=== PATIENT | male | born 1990 | race Caucasian/White ===

== ENCOUNTER 2019-04-03 14:17 | Inpatient (IN) | payer OTHER ==
[2019-04-03 18:03] VITALS: BMI 22.2
--- NOTE | 2019-04-03 20:54 | HP ---
CIWA Score Nausea/Vomitin Muscle Tremors: 3 Anxiety: 2 Agitation: 2 Paroxysmal Sweats: 2 Orientation: 0-Oriented Tacttile Disturbances: 2-Mild Itch/Numbness/Burn Auditory Disturbances: 2-Mild Harshness/Frighten Visual Disturbances: 2-Mild Sensitivity Headache: 2-Mild CIWA-Ar Total Score: 19 - Admission Criteria OASAS Guidelines: Admission for Medically Managed Detox: Requires at least one of the followin. CIWA greater than 12 2. Seizures within the past 24 hours 3. Delirium tremens within the past 24 hours 4. Hallucinations within the past 24 hours 5. Acute intervention needed for co occurring medical disorder 6. Acute intervention needed for co occurring psychiatric disorder 7. Severe withdrawal that cannot be handled at a lower level of care (continued vomiting, continued diarrhea, abnormal vital signs) requiring intravenous medication and/or fluids 8. Admission ROS BHS - HPI Chief Complaint: DEPENDENT ON ETOH AND MARIJUANA Allergies/Adverse Reactions: Allergies Allergy/AdvReac Type Severity Reaction Status Date / Time No Known Allergies Allergy Verified 04/03/19 17:47 History of Present Illness: THE PT. IS REQUESTING ADMISSION TO THE DETOX UNIT AND CAME FOR MEDICAL CLEARANCE Exam Limitations: No Limitations - Ebola screening Have you traveled outside of the country in the last 21 days: No (N) Have you had contact with anyone from an Ebola affected area: No Have you been sick,other than usual withdrawal symptoms: No Do you have a fever: No - Review of Systems Constitutional: See HPI, Malaise, Weakness EENT: reports: See HPI Respiratory: reports: See HPI Cardiac: reports: See HPI, Syncope GI: reports: See HPI, Diarrhea, Nausea, Abdominal cramping : reports: No Symptoms Reported, See HPI Integumentary: reports: See HPI, Flushing, Sweating Neuro: reports: See HPI, Headache, Tremors, Weakness Endocrine: reports: See HPI Hematology: reports: See HPI Psychiatric: reports: Judgement Intact, Orientated x3, Anxious, Depressed Patient History - Patient Medical History Hx Asthma: Yes Hx Human Immunodeficiency Virus (HIV): No Hx Hepatitis C: No Hx Depression: Yes (AND ANXIETY) - Patient Surgical History Past Surgical History: Yes Hx Orthopedic Surgery: Yes (REPAIR OF RT. ACL IN 2010) - Smoking Cessation Smoking history: Current every day smoker Have you smoked in the past 12 months: Yes Aproximately how many cigarettes per day: 20 Hx Chewing Tobacco Use: No Initiated information on smoking cessation: Yes 'Breaking Loose' booklet given: 04/03/19 - Substance & Tx. History Hx Alcohol Use: Yes Hx Substance Use: Yes Substance Use Type: Alcohol, Marijuana Hx Substance Use Treatment: Yes - Substances abused Alcohol Substance route: Oral Frequency: Daily Amount used: 1 liter ,sometimes half a gallon, vodka. Age of first use: 13 Date of last use: 04/03/19 Marijuana/Hashish Substance route: Smoking Frequency: Daily Amount used: 'not a lot' Age of first use: 15 Date of last use: 04/03/19 Admission Physical Exam BHS - Vital Signs Vital Signs: Vital Signs - 24 hr 04/03/19 17:44 Temperature 97.9 F Pulse Rate 123 H Respiratory 16 Rate Blood Pressure 153/72 - Physical General Appearance: Yes: No Apparent Distress, Nourished, Appropriately Dressed , Alcohol on Breath, Tremorous, Sweating, Anxious HEENTM: Yes: Hearing grossly Normal, Normocephalic, Normal Voice, KAIT, Pharynx Normal Respiratory: Yes: Chest Non-Tender, Lungs Clear, Normal Breath Sounds, No Respiratory Distress, No Accessory Muscle Use Neck: Yes: No masses,lesions,Nodules, Supple, Trachea in good position Breast: Yes: Breast Exam Deferred, Axillae without masses Cardiology: Yes: Regular Rhythm, S1, S2, Tachycardia Abdominal: Yes: Normal Bowel Sounds, Non Tender, Flat, Soft Back: Yes: Normal Inspection Musculoskeletal: Yes: full range of Motion, Gait Steady, Pelvis Stable, Muscle Pain, Muscle weakness Extremities: Yes: Normal Capillary Refill, Normal Range of Motion, Non-Tender, Tremors Neurological: Yes: material hauler II-XII NML intact, Fully Oriented, Alert, Motor Strength 5/5, Normal Response, Depressed Affect Integumentary: Yes: Warm, Moist Lymphatic: Yes: Within Normal Limits - Diagnostic (1) EtOH dependence Current Visit: Yes Status: Chronic Qualifiers: Substance use status: uncomplicated Qualified Code(s): F10.20 - Alcohol dependence, uncomplicated (2) Cannabis dependence Current Visit: Yes Status: Chronic (3) Asthma Current Visit: Yes Status: Chronic Qualifiers: Asthma severity: mild Asthma persistence: intermittent Asthma complication type: uncomplicated Qualified Code(s): J45.20 - Mild intermittent asthma, uncomplicated (4) Nicotine dependence Current Visit: Yes Status: Chronic (5) Anxiety and depression Current Visit: Yes Status: Chronic Cleared for Admission S - Detox or Rehab [facility] Level of Care: Medically Supervised Detox Regimen/Protocol: Librium Breathalyzer - Breathalyzer Breathalyzer: 0.101 Urine Drug Screen - Test Device Lot number: [id number] Expiration date: 12/06/20 - Control Is test valid?: Yes - Results Drug screen NEGATIVE: No Urine drug screen results: THC-Marijuana Inpatient Rehab Admission - Rehab Decision to Admit Inpatient rehab admission?: No
[2019-04-03] MEDS ORDERED: BISMUTH SUBSALICYLATE 524 MG/30 ML UD PO PRN (20:59)
[2019-04-03] MEDS ORDERED: ACETAMINOPHEN 325 MG TABLET (FP) PO PRN ×2 (20:59)
[2019-04-03] MEDS ORDERED: hydrOXYzine PAMOATE 25 MG CAPSULE (FP) PO PRN (20:59)
[2019-04-03] MEDS ORDERED: IBUPROFEN 400 MG TABLET (FP) PO PRN (20:59)
[2019-04-03] MEDS ORDERED: MENTHOL/PHENOL 1 EACH UD MM PRN (20:59)
[2019-04-03] MEDS ORDERED: MAGNESIUM CITRATE 300 ML BOTTLE PO PRN (20:59)
[2019-04-03] MEDS ORDERED: chlordiazePOXIDE HCL 10 MG CAPSULE PO PRN (20:59)
[2019-04-03] MEDS ORDERED: NICOTINE POLACRILEX 4 MG GUM BUC PRN (20:59)
[2019-04-03] MEDS ORDERED: MAG HYDROX/AL HYDROX/SIMETH 30 ML UNIT-DOSE CUP PO PRN (20:59)
[2019-04-03] MEDS ORDERED: chlordiazePOXIDE HCL 25 MG CAPSULE PO ONE (20:59)
[2019-04-03] MEDS ORDERED: METHOCARBAMOL 500 MG TABLET PO PRN (20:59)
[2019-04-03] MEDS ORDERED: ALBUTEROL SO4 8 GM HFA INHALER IH PRN (22:00)
[2019-04-03] MEDS ORDERED: NORTRIPTYLINE HCL 50 MG CAPSULE PO SCH (22:00)
[2019-04-03] MEDS: THIAMINE HCL 100 MG TABLET (FP) PO SCH (22:53)
[2019-04-03] MEDS: ESCITALOPRAM OXALATE 10 MG TABLET (FP) PO SCH (22:55)
[2019-04-03] MEDS: traZODone HCL 50 MG TABLET (FP) PO SCH (22:56)
[2019-04-03] MEDS: chlordiazePOXIDE HCL 25 MG CAPSULE PO SCH (22:56)
[2019-04-03] MEDS: TOPIRAMATE 25 MG TABLET (FP) PO SCH (23:34)
[2019-04-04] MEDS: chlordiazePOXIDE HCL 25 MG CAPSULE PO SCH ×3 (05:33→22:20)
[2019-04-04] MEDS: TRIMETHOBENZAMIDE HCL 200MG/2ML INJ IM PRN (09:03)
[2019-04-04] MEDS ORDERED: ONDANSETRON *ODT* 4 MG TABLET SL ONE (09:53)
--- NOTE | 2019-04-04 09:55 | PN ---
S CIWA - CIWA Score Nausea/Vomitin (no vomiting) Muscle Tremors: 4-Moderate,w/Arms Extend Anxiety: 3 Agitation: 3 Paroxysmal Sweats: 2 Orientation: 2-Disoriented Date<2 days (date of week and day of month) Tacttile Disturbances: 0-None Auditory Disturbances: 1-Very Mild Visual Disturbances: 0-None Headache: 0-None Present CIWA-Ar Total Score: 17 BHS Progress Note (SOAP) Subjective: 28 years old male admitted on 04/03/19 for alcohol withdrawal sx management treated with librium detox regimen c/o nausea "I am taking zofran in the past few years" zofran 4 mg sl x 1 continue tigan prn discontinue motrin begin pepcid Objective: 04/04/19 09:57 Vital Signs Temperature 98.0 F 04/04/19 09:07 Pulse Rate 73 04/04/19 09:07 Respiratory Rate 18 04/04/19 09:07 Blood Pressure 131/84 04/04/19 09:07 O2 Sat by Pulse Oximetry (%) 04/04/19 09:57 lab pending Assessment: 04/04/19 09:59 alcohol withdrawal sx pepcid 20 mg po bid zofran 4 mg sl x 1 ensure 90ml po bid Plan: continue librium detox regimen
[2019-04-04 10:08] LABS: ALBUMIN 3.6 g/dl (3.4-5.0); BILIRUBIN,TOTAL 0.4 mg/dL (0.2-1); BLOOD UREA NITROGEN 9.3 mg/dL (7-18); CALCIUM 8.9 mg/dL (8.5-10.1); CREATININE 0.8 mg/dL (0.55-1.3); POTASSIUM 3.8 mmol/L (3.5-5.1)
[2019-04-04 10:09] LABS: HEMATOCRIT 40.8 % (35.4-49); HEMOGLOBIN 13.7 GM/dL (11.7-16.9); MCH 32.1 pg (25.7-33.7); MCHC 33.6 g/dl (32.0-35.9); MEAN CELL VOLUME 95.6 fl (80-96); MEAN PLT VOLUME 7.9 fl (7.5-11.1); PLATELET COUNT 248 K/MM3 (134-434); RBC 4.27 M/mm3 (4.00-5.60); RDW 12.6 % (11.9-15.9); WHITE BLOOD COUNT 5.6 K/mm3 (4.0-10.0)
[2019-04-04] MEDS: ESCITALOPRAM OXALATE 10 MG TABLET (FP) PO SCH (10:46)
[2019-04-04] MEDS: PRENATAL VITAMINS W/ FOLIC ACID TABLET (FP) PO SCH (10:46)
[2019-04-04] MEDS: NICOTINE 21 MG/24 HOURS TOPICAL PATCH TD SCH (10:47)
[2019-04-04] MEDS: FAMOTIDINE 20 MG TABLET PO SCH ×2 (10:47→22:20)
[2019-04-04] MEDS: TOPIRAMATE 25 MG TABLET (FP) PO SCH ×2 (10:48→22:20)
[2019-04-04] MEDS: ONDANSETRON *ODT* 4 MG TABLET SL PRN (21:48)
[2019-04-04] MEDS: traZODone HCL 50 MG TABLET (FP) PO SCH (22:20)
[2019-04-04] MEDS: NORTRIPTYLINE HCL 25 MG CAPSULE PO SCH (22:20)
[2019-04-04] MEDS: THIAMINE HCL 100 MG TABLET (FP) PO SCH (22:21)
[2019-04-04] MEDS: MELATONIN 5 MG TABLETS PO PRN (22:21)
[2019-04-05] MEDS: TRIMETHOBENZAMIDE HCL 200MG/2ML INJ IM PRN ×2 (02:28→17:45)
[2019-04-05] MEDS ORDERED: chlordiazePOXIDE 5 MG CAPSULE PO SCH (05:00)
[2019-04-05] MEDS: FAMOTIDINE 20 MG TABLET PO SCH ×2 (10:28→22:17)
[2019-04-05] MEDS: NICOTINE 21 MG/24 HOURS TOPICAL PATCH TD SCH (10:28)
[2019-04-05] MEDS: ESCITALOPRAM OXALATE 10 MG TABLET (FP) PO SCH (10:28)
[2019-04-05] MEDS: PRENATAL VITAMINS W/ FOLIC ACID TABLET (FP) PO SCH (10:28)
[2019-04-05] MEDS: TOPIRAMATE 25 MG TABLET (FP) PO SCH ×2 (11:13→22:17)
[2019-04-05] MEDS: ONDANSETRON *ODT* 4 MG TABLET SL PRN (11:16)
--- NOTE | 2019-04-05 12:56 | PN ---
[facility] CIWA - CIWA Score Nausea/Vomitin-No Nausea/No Vomiting Muscle Tremors: 3 Anxiety: 3 Agitation: 2 Paroxysmal Sweats: 2 Orientation: 1-Uncertain about Date (date of week) Tacttile Disturbances: 1-Very Mild Itch/Numbness Auditory Disturbances: 0-None Visual Disturbances: 0-None Headache: 0-None Present CIWA-Ar Total Score: 12 S Progress Note (SOAP) Subjective: 28 years old male admitted on 04/03/19 for alcohol withdrawal sx management treated with ativan detox regimen patient tolerated well ambulating on hallway ate breakfast and lunch tolerate food and fluid well Objective: 04/05/19 12:55 Vital Signs Temperature 97.2 F L 04/05/19 09:18 Pulse Rate 69 04/05/19 09:18 Respiratory Rate 18 04/05/19 09:18 Blood Pressure 129/89 04/05/19 09:18 O2 Sat by Pulse Oximetry (%) Laboratory Last Values WBC 5.6 K/mm3 (4.0-10.0) 04/04/19 07:40 RBC 4.27 M/mm3 (4.00-5.60) 04/04/19 07:40 Hgb 13.7 GM/dL (11.7-16.9) 04/04/19 07:40 Hct 40.8 % (35.4-49) 04/04/19 07:40 MCV 95.6 fl (80-96) 04/04/19 07:40 MCH 32.1 pg (25.7-33.7) 04/04/19 07:40 MCHC 33.6 g/dl (32.0-35.9) 04/04/19 07:40 RDW 12.6 % (11.9-15.9) 04/04/19 07:40 Plt Count 248 K/MM3 (134-434) 04/04/19 07:40 MPV 7.9 fl (7.5-11.1) 04/04/19 07:40 Sodium 142 mmol/L (136-145) 04/04/19 07:40 Potassium 3.8 mmol/L (3.5-5.1) 04/04/19 07:40 Chloride 108 mmol/L (98-107) H 04/04/19 07:40 Carbon Dioxide 26 mmol/L (21-32) 04/04/19 07:40 Anion Gap 8 MMOL/L (8-16) 04/04/19 07:40 BUN 9.3 mg/dL (7-18) 04/04/19 07:40 Creatinine 0.8 mg/dL (0.55-1.3) 04/04/19 07:40 Est GFR (CKD-EPI)AfAm 140.90 04/04/19 07:40 Est GFR (CKD-EPI)NonAf 121.57 04/04/19 07:40 Random Glucose 92 mg/dL (74-106) 04/04/19 07:40 Calcium 8.9 mg/dL (8.5-10.1) 04/04/19 07:40 Total Bilirubin 0.4 mg/dL (0.2-1) 04/04/19 07:40 AST 21 U/L (15-37) 04/04/19 07:40 ALT 41 U/L (13-61) 04/04/19 07:40 Alkaline Phosphatase 56 U/L (45-117) 04/04/19 07:40 Total Protein 6.0 g/dl (6.4-8.2) L 04/04/19 07:40 Albumin 3.6 g/dl (3.4-5.0) 04/04/19 07:40 RPR Titer Nonreactive (NONREACTIVE) 04/04/19 07:40 lab noted Assessment: 04/05/19 12:55 alcohol withdrawal sx Plan: continue ativan detox regimen
--- NOTE | 2019-04-05 13:11 | CONSULT ---
[facility] Psychiatric Consult - Data Date of interview: 04/05/19 Admission source: [facility] Identifying data: First admission to [facility] for this 28 y/o Caucasianmale self-referred for detoxification (SUDHA issues : alcohol, cannabis, nicotine). Interviewed at [address] [place] [address]. Patient is single, no dependents, unemployed (trained as cook), domiciled and supported by relatives. Substance Abuse History: Discussed with the patient. Details in current [facility] report as follows : Smoking history: Current every day smoker. Have you smoked in the past 12 months: Yes. Aproximately how many cigarettes per day: 20. Hx Chewing Tobacco Use: No. Initiated information on smoking cessation: Yes. ' Breaking Loose' booklet given: 04/03/19. - Substance & Tx. History. Hx Alcohol Use: Yes. Hx Substance Use: Yes. Substance Use Type: Alcohol, Marijuana. Hx Substance Use Treatment: Yes. - Substances abused. Alcohol. Substance route: Oral. Frequency: Daily. Amount used: 1 liter ,sometimes half a gallon, vodka. Age of first use: 13. Date of last use: 04/03/19. Marijuana/Hashish. Substance route: Smoking. Frequency: Daily. Amount used: ' not a lot'. Age of first use: 15. Date of last use: 04/03/19 Medical History: Medical profile is remarkable for bronchial asthma and orthosurgery (torn ACL ligament : right knee). Psychiatric History: Patient declines to elaborate on his psychiatric longitudinal history. Mr Chua, on the other hand, discloses that he has been diagnosed with MDD and current OPD care at the [facility] in [facility]. His medications consist of lexapro, nortriptyline, trazodone and topiramate. Patient gets evasive about the topic of history of suicide attempts. Physical/Sexual Abuse/Trauma History: Patient denies. Additional Comment: Urine drug screen results: THC-Marijuana. Noted. Mental Status Exam - Mental Status Exam Alert and Oriented to: Time, Place, Person Cognitive Function: Good Patient Appearance: Well Groomed (tattoos on both upper extremities) Mood: Nervous, Anxious, Irritable Affect: Mood Congruent, Labile Patient Behavior: Fatigued, Cooperative Speech Pattern: Clear, Excessive Voice Loudness: Normal Thought Process: Intact, Goal Oriented Thought Disorder: Not Present Hallucinations: Denies Suicidal Ideation: Denies Homicidal Ideation: Denies Insight/Judgement: Poor Appetite: Good Muscle strength/Tone: Normal Gait/Station: Normal Psychiatric Findings - Problem List ([place] 1, 2,3) (1) Alcohol use disorder Current Visit: Yes Status: Chronic (2) Cannabis dependence Current Visit: Yes Status: Chronic (3) Nicotine dependence Current Visit: Yes Status: Chronic (4) Substance induced mood disorder Current Visit: Yes Status: Chronic (5) History of depression Current Visit: Yes Status: Chronic - Initial Treatment Plan Initial Treatment Plan: Psychoeducation. Sleep hygiene. Detoxification. Medications (lexapro, nortriptyline, trazodone) resumed on admiision (from [facility]) . Patient is interviewed with medical students in attendance (with his verbal authorization). AA meetings. Support. MAT services offered (patient states that he will reconsider vivitrol at his next meeting with his OPD therapist). Side effects and benefits of lexapro, nortriptyline, trazodone are discussed with patient. Made aware of potential for priapism, sexual impotence, suicidal ideation and cardiovascular adverse events. Mr Chua is in agreement with this plan of care. gave verbal consent to MD. Waggoner.
[2019-04-05] MEDS: LORazepam 0.5 MG TABLET PO SCH ×2 (13:36→22:17)
[2019-04-05] MEDS: LORazepam 1 MG TABLET PO PRN (16:09)
[2019-04-05] MEDS: traZODone HCL 50 MG TABLET (FP) PO SCH (22:17)
[2019-04-05] MEDS: NORTRIPTYLINE HCL 25 MG CAPSULE PO SCH (22:17)
[2019-04-05] MEDS: THIAMINE HCL 100 MG TABLET (FP) PO SCH (22:18)
[2019-04-06] MEDS ORDERED: chlordiazePOXIDE HCL 10 MG CAPSULE PO PRN
[2019-04-06] MEDS ORDERED: LORazepam 0.5 MG TABLET PO PRN (00:05)
[2019-04-06] MEDS: TRIMETHOBENZAMIDE HCL 200MG/2ML INJ IM PRN ×3 (02:30→18:17)
[2019-04-06] MEDS: LORazepam 1 MG TABLET PO PRN ×2 (02:33→10:02)
[2019-04-06] MEDS ORDERED: chlordiazePOXIDE HCL 10 MG CAPSULE PO SCH (05:00)
[2019-04-06] MEDS: LORazepam 0.5 MG TABLET PO SCH ×2 (06:34→18:17)
[2019-04-06] MEDS: ONDANSETRON *ODT* 4 MG TABLET SL PRN ×3 (06:35→23:11)
[2019-04-06] MEDS: NICOTINE 21 MG/24 HOURS TOPICAL PATCH TD SCH (10:01)
[2019-04-06] MEDS: TOPIRAMATE 25 MG TABLET (FP) PO SCH ×2 (10:01→23:10)
[2019-04-06] MEDS: ESCITALOPRAM OXALATE 10 MG TABLET (FP) PO SCH (10:01)
[2019-04-06] MEDS: PRENATAL VITAMINS W/ FOLIC ACID TABLET (FP) PO SCH (10:01)
[2019-04-06] MEDS: FAMOTIDINE 20 MG TABLET PO SCH ×2 (10:01→23:10)
--- NOTE | 2019-04-06 14:37 | PN ---
S CIWA - CIWA Score Nausea/Vomitin-Mild Nausea/No Vomiting Muscle Tremors: 1-None Visible, but [place]w Anxiety: 2 Agitation: 2 Paroxysmal Sweats: No Perspiration Orientation: 0-Oriented Tacttile Disturbances: 1-Very Mild Itch/Numbness Auditory Disturbances: 0-None Visual Disturbances: 0-None Headache: 2-Mild CIWA-Ar Total Score: 9 BHS Progress Note (SOAP) Subjective: alert,irritable,anxious,interrupted sleep,tremor Objective: 04/06/19 14:35 Laboratory Last Values WBC 5.6 K/mm3 (4.0-10.0) 04/04/19 07:40 RBC 4.27 M/mm3 (4.00-5.60) 04/04/19 07:40 Hgb 13.7 GM/dL (11.7-16.9) 04/04/19 07:40 Hct 40.8 % (35.4-49) 04/04/19 07:40 MCV 95.6 fl (80-96) 04/04/19 07:40 MCH 32.1 pg (25.7-33.7) 04/04/19 07:40 MCHC 33.6 g/dl (32.0-35.9) 04/04/19 07:40 RDW 12.6 % (11.9-15.9) 04/04/19 07:40 Plt Count 248 K/MM3 (134-434) 04/04/19 07:40 MPV 7.9 fl (7.5-11.1) 04/04/19 07:40 Sodium 142 mmol/L (136-145) 04/04/19 07:40 Potassium 3.8 mmol/L (3.5-5.1) 04/04/19 07:40 Chloride 108 mmol/L (98-107) H 04/04/19 07:40 Carbon Dioxide 26 mmol/L (21-32) 04/04/19 07:40 Anion Gap 8 MMOL/L (8-16) 04/04/19 07:40 BUN 9.3 mg/dL (7-18) 04/04/19 07:40 Creatinine 0.8 mg/dL (0.55-1.3) 04/04/19 07:40 Est GFR (CKD-EPI)AfAm 140.90 04/04/19 07:40 Est GFR (CKD-EPI)NonAf 121.57 04/04/19 07:40 Random Glucose 92 mg/dL (74-106) 04/04/19 07:40 Calcium 8.9 mg/dL (8.5-10.1) 04/04/19 07:40 Total Bilirubin 0.4 mg/dL (0.2-1) 04/04/19 07:40 AST 21 U/L (15-37) 04/04/19 07:40 ALT 41 U/L (13-61) 04/04/19 07:40 Alkaline Phosphatase 56 U/L (45-117) 04/04/19 07:40 Total Protein 6.0 g/dl (6.4-8.2) L 04/04/19 07:40 Albumin 3.6 g/dl (3.4-5.0) 04/04/19 07:40 RPR Titer Nonreactive (NONREACTIVE) 04/04/19 07:40 04/06/19 14:35 Vital Signs Temperature 97.0 F L 04/06/19 13:44 Pulse Rate 90 04/06/19 13:44 Respiratory Rate 18 04/06/19 13:44 Blood Pressure 139/90 04/06/19 13:44 O2 Sat by Pulse Oximetry (%) Assessment: 04/06/19 14:36 withdrawal symptom Plan: continue detox librium regimen
[2019-04-06] MEDS: MAGNESIUM HYDROX 2400MG/30ML ORAL SUSPENSION 30 ML CUP PO PRN (18:21)
[2019-04-06] MEDS: THIAMINE HCL 100 MG TABLET (FP) PO SCH (23:09)
[2019-04-06] MEDS: traZODone HCL 50 MG TABLET (FP) PO SCH (23:10)
[2019-04-06] MEDS: NORTRIPTYLINE HCL 25 MG CAPSULE PO SCH (23:10)
[2019-04-06] MEDS: MELATONIN 5 MG TABLETS PO PRN (23:14)
[2019-04-07] MEDS: TRIMETHOBENZAMIDE HCL 200MG/2ML INJ IM PRN ×2 (01:04→10:58)
[2019-04-07] MEDS ORDERED: LORazepam 0.5 MG TABLET PO ONE (05:00)
[2019-04-07] MEDS ORDERED: chlordiazePOXIDE HCL 10 MG CAPSULE PO ONE (05:00)
[2019-04-07] MEDS: ONDANSETRON *ODT* 4 MG TABLET SL PRN (06:44)
[2019-04-07] MEDS: TOPIRAMATE 25 MG TABLET (FP) PO SCH (10:09)
[2019-04-07] MEDS: FAMOTIDINE 20 MG TABLET PO SCH (10:10)
[2019-04-07] MEDS: ESCITALOPRAM OXALATE 10 MG TABLET (FP) PO SCH (10:10)
[2019-04-07] MEDS: PRENATAL VITAMINS W/ FOLIC ACID TABLET (FP) PO SCH (10:11)
[2019-04-07] MEDS: NICOTINE 21 MG/24 HOURS TOPICAL PATCH TD SCH (10:11)
[2019-04-07] MEDS: MAGNESIUM HYDROX 2400MG/30ML ORAL SUSPENSION 30 ML CUP PO PRN (10:11)
--- NOTE | 2019-04-07 12:46 | DS ---
[facility] Detox Discharge Summary Admission Date: 04/03/19 Discharge Date: 04/07/19 - History Present History: Alcohol Dependence Additional Comments: 28 years old male admitted on 04/03/19 for alcohol withdrawal sx management treated with ativan detox regimen patient tolerate well patient is alert oriented x 3 respiratory clear lung bilaterally on auscultation extremities full range of motion skin warm and dry - Physical Exam Results Vital Signs: Vital Signs Temperature 97.8 F 04/07/19 09:08 Pulse Rate 81 04/07/19 09:08 Respiratory Rate 18 04/07/19 09:08 Blood Pressure 116/72 04/07/19 09:08 O2 Sat by Pulse Oximetry (%) Pertinent Admission Physical Exam Findings: alcohol withdrawal sx Laboratory Last Values WBC 5.6 K/mm3 (4.0-10.0) 04/04/19 07:40 RBC 4.27 M/mm3 (4.00-5.60) 04/04/19 07:40 Hgb 13.7 GM/dL (11.7-16.9) 04/04/19 07:40 Hct 40.8 % (35.4-49) 04/04/19 07:40 MCV 95.6 fl (80-96) 04/04/19 07:40 MCH 32.1 pg (25.7-33.7) 04/04/19 07:40 MCHC 33.6 g/dl (32.0-35.9) 04/04/19 07:40 RDW 12.6 % (11.9-15.9) 04/04/19 07:40 Plt Count 248 K/MM3 (134-434) 04/04/19 07:40 MPV 7.9 fl (7.5-11.1) 04/04/19 07:40 Sodium 142 mmol/L (136-145) 04/04/19 07:40 Potassium 3.8 mmol/L (3.5-5.1) 04/04/19 07:40 Chloride 108 mmol/L (98-107) H 04/04/19 07:40 Carbon Dioxide 26 mmol/L (21-32) 04/04/19 07:40 Anion Gap 8 MMOL/L (8-16) 04/04/19 07:40 BUN 9.3 mg/dL (7-18) 04/04/19 07:40 Creatinine 0.8 mg/dL (0.55-1.3) 04/04/19 07:40 Est GFR (CKD-EPI)AfAm 140.90 04/04/19 07:40 Est GFR (CKD-EPI)NonAf 121.57 04/04/19 07:40 Random Glucose 92 mg/dL (74-106) 04/04/19 07:40 Calcium 8.9 mg/dL (8.5-10.1) 04/04/19 07:40 Total Bilirubin 0.4 mg/dL (0.2-1) 04/04/19 07:40 AST 21 U/L (15-37) 04/04/19 07:40 ALT 41 U/L (13-61) 04/04/19 07:40 Alkaline Phosphatase 56 U/L (45-117) 04/04/19 07:40 Total Protein 6.0 g/dl (6.4-8.2) L 04/04/19 07:40 Albumin 3.6 g/dl (3.4-5.0) 04/04/19 07:40 RPR Titer Nonreactive (NONREACTIVE) 04/04/19 07:40 lab noted - Treatment Hospital Course: Detox Protocol Followed, Detoxed Safely, Responded well, Discharged Condition Good, Rehab Referral Accepted Patient has [facility]ed [facility] - Medication Discharge Medications: Ambulatory Orders Albuterol Sulfate [Albuterol Sulfate Hfa] 2 inhaler PO Q4HWA 04/03/19 Escitalopram Oxalate [Lexapro -] 10 mg PO DAILY 04/03/19 Nortriptyline HCl [Pamelor -] 50 mg PO HS 04/03/19 Topiramate [Topamax] 50 mg PO BID 04/03/19 traZODone HCL [Trazodone HCl] 50 mg PO HS 04/03/19 - Diagnosis (1) Asthma Current Visit: Yes Status: Chronic Qualifiers: Asthma severity: mild Asthma persistence: intermittent Asthma complication type: uncomplicated Qualified Code(s): J45.20 - Mild intermittent asthma, uncomplicated (2) Nicotine dependence Current Visit: Yes Status: Acute Qualifiers: Nicotine product type: cigarettes Substance use status: in withdrawal Qualified Code(s): F17.213 - Nicotine dependence, cigarettes, with withdrawal (3) Substance induced mood disorder Current Visit: Yes Status: Suspected (4) Alcohol use disorder Current Visit: Yes Status: Acute - AMA Did Patient Leave Against Medical Advice: No CIWA Score - CIWA Score Nausea/Vomitin-No Nausea/No Vomiting Muscle Tremors: None Anxiety: 1-Mildly Anxious Agitation: 1-Slight > Activity Paroxysmal Sweats: No Perspiration Orientation: 0-Oriented Tacttile Disturbances: 0-None Auditory Disturbances: 0-None Visual Disturbances: 0-None Headache: 2-Mild CIWA-Ar Total Score: 4
[2019-04-07 13:15] VITALS: BP 106/62; PULSE 73; TEMP 98.4
== END 2019-04-07 13:41 | disposition other institution (70) | DRG 775 ==
LOC: YASAS 14:17 → Y3N 21:17
PROVIDERS: ADMIT Allergy & Immunology; ATTEND Allergy & Immunology
PROC: HZ2ZZZZ Detoxification Services for Substance Abuse Treatment (ICD-10-PCS; principal; 2019-04-03)
DX: F10.230 Alcohol dependence with withdrawal, uncomplicated (principal); F12.20 Cannabis dependence, uncomplicated; F17.213 Nicotine dependence, cigarettes, with withdrawal; F19.24 Other psychoactive substance dependence with psychoactive substance-induced mood disorder; F41.9 Anxiety disorder, unspecified; F32.9 Major depressive disorder, single episode, unspecified; J45.20 Mild intermittent asthma, uncomplicated; R00.0 Tachycardia, unspecified
CPT/HCPCS: 36415; 80053; 85027; 86593; Q0162

== ENCOUNTER 2019-04-07 13:50 | Inpatient (IN) | payer OTHER ==
[2019-04-07] MEDS ORDERED: MENTHOL/PHENOL 1 EACH UD MM PRN (15:13)
[2019-04-07] MEDS ORDERED: guaiFENesin 200 MG/10 ML 10 ML UNIT-DOSE CUPS PO PRN (15:13)
[2019-04-07] MEDS ORDERED: MAGNESIUM CITRATE 300 ML BOTTLE PO PRN (15:13)
[2019-04-07] MEDS ORDERED: MAG HYDROX/AL HYDROX/SIMETH 30 ML UNIT-DOSE CUP PO PRN (15:13)
[2019-04-07] MEDS ORDERED: MAGNESIUM HYDROX 2400MG/30ML ORAL SUSPENSION 30 ML CUP PO PRN (15:13)
[2019-04-07] MEDS ORDERED: P-EPHED 60MG/TRIPROLIDI 2.5MG TABLET PO PRN (15:13)
[2019-04-07] MEDS ORDERED: LOPERAMIDE HCL 2 MG CAPSULE PO PRN (15:13)
--- NOTE | 2019-04-07 15:13 | HP ---
[facility]ACE [facility]LL Rehab Assess/Revision - Admission History Admitted to Rehab [facility]: [facility] Date of Admission to Rehab: 04/07/19 - Findings Detox History & Physical reviewed: Yes Concur with findings: Yes Comments/Additional Findings: transferred from detox to rehab admission as per protocol Inpatient Rehab Admission - Rehab Decision to Admit Inpatient rehab admission?: Yes - Initial Determination Are CD services needed?: Yes Free of communicable disease: Yes Not in need of hospitalization: Yes - Rehab Admission Criteria Previous failed treatment: Yes Poor recovery environment: Yes Comorbidities: Yes Lacks judgement: Yes Patient is meeting Inpatient Rehab admission criteria:: Yes
[2019-04-07] MEDS ORDERED: ALBUTEROL SO4 8 GM HFA INHALER IH PRN (15:16)
[2019-04-07] MEDS: THIAMINE HCL 100 MG TABLET (FP) PO SCH (21:33)
[2019-04-07] MEDS: FAMOTIDINE 20 MG TABLET PO SCH (21:33)
[2019-04-07] MEDS: ONDANSETRON *ODT* 4 MG TABLET SL PRN (21:34)
[2019-04-07] MEDS: TOPIRAMATE 25 MG TABLET (FP) PO SCH (21:35)
[2019-04-07] MEDS: NORTRIPTYLINE HCL 25 MG CAPSULE PO SCH (21:35)
[2019-04-07] MEDS: MELATONIN 5 MG TABLETS PO PRN (21:36)
[2019-04-08] MEDS: ONDANSETRON *ODT* 4 MG TABLET SL PRN (06:56)
--- NOTE | 2019-04-08 09:24 | CONSULT ---
[facility] Psychiatric Consult - Data Date of interview: 04/08/19 Admission source: [facility] Identifying data: Patient is a 28 year old single male, father of one, unemployed, domiciled, and is not receiving any financial assistance. This is patient's first admission to rehab at [facility]. Patient admitted to for alcohol dependence. Substance Abuse History: Smoking Cessation. Smoking history: Current every day smoker. Have you smoked in the past 12 months: Yes. Aproximately how many cigarettes per day: 20. Hx Chewing Tobacco Use: No. Initiated information on smoking cessation: Yes. 'Breaking Loose' booklet given: 04/03/19. - Substance & Tx. History. Hx Alcohol Use: Yes. Hx Substance Use: Yes. Substance Use Type : Alcohol, Marijuana. Hx Substance Use Treatment: Yes. - Substances abused. * * Alcohol. Substance route: Oral. Frequency: Daily. Amount used: 1 liter , sometimes half a gallon, vodka. Age of first use: 13. Date of last use: . Marijuana/Hashish. Substance route: Smoking. Frequency: Daily. Amount used: 'not a lot'. Age of first use: 15. Date of last use: 04/03/19 Medical History: Medical profile is remarkable for bronchial asthma, orthosurgery (torn ACL ligament : right knee), history of Gastrointestinal problems. Psychiatric History: Patient's first psychiatric contact was last year at [facility] in [facility]. He reports being diagnosed with Depression and was started on lexapro 10mg daily. Patient denies history of psychiatric hospitalizations and suicide attempt. As per patient he is also prescribed nortriptyline and topamax by his Gastrointestinal doctor due to his history of GI issues. At present patient is slightly irritable. Physical/Sexual Abuse/Trauma History: denies. Mental Status Exam - Mental Status Exam Alert and Oriented to: Time, Place, Person Cognitive Function: Good Patient Appearance: Well Groomed Mood: Irritable (irritable as he is requesting have his belonings so that he will not have to wear hospital attire. ) Affect: Appropriate Patient Behavior: Cooperative Speech Pattern: Appropriate Voice Loudness: Normal Thought Process: Goal Oriented Thought Disorder: Not Present Hallucinations: Denies Suicidal Ideation: Denies Homicidal Ideation: Denies Insight/Judgement: Poor Sleep: Fair Appetite: Fair Muscle strength/Tone: Normal Gait/Station: Normal Psychiatric Findings - Problem List ([place] 1, 2,3) (1) Alcohol use disorder Current Visit: Yes Status: Acute (2) Nicotine dependence Current Visit: Yes Status: Acute Qualifiers: Nicotine product type: cigarettes Substance use status: in withdrawal Qualified Code(s): F17.213 - Nicotine dependence, cigarettes, with withdrawal (3) Cannabis dependence Current Visit: Yes Status: Chronic (4) Substance induced mood disorder Current Visit: Yes Status: Acute - Initial Treatment Plan Initial Treatment Plan: Psychoeducation provided. Detoxification in progress. Will continue lexapro 10mg daily. Benefits and side effects discussed. Verbal consent given.
[2019-04-08] MEDS: TOPIRAMATE 25 MG TABLET (FP) PO SCH ×2 (11:00→21:43)
[2019-04-08] MEDS: PRENATAL VITAMINS W/ FOLIC ACID TABLET (FP) PO SCH (11:00)
[2019-04-08] MEDS: ESCITALOPRAM OXALATE 10 MG TABLET (FP) PO SCH (11:00)
[2019-04-08] MEDS: FAMOTIDINE 20 MG TABLET PO SCH ×2 (11:00→21:43)
--- NOTE | 2019-04-08 15:51 | EKG ---
Test Reason : Blood Pressure : / mmHG Vent. Rate : 089 BPM Atrial Rate : 089 BPM P-R Int : 154 ms QRS Dur : 090 ms QT Int : 358 ms P-R-T Axes : 066 085 053 degrees QTc Int : 435 ms NORMAL SINUS RHYTHM NORMAL ECG NO PREVIOUS ECGS AVAILABLE Confirmed by ISAIAH OCONNELL, CONOR ([id number]) on 04/08/2019 3:51:21 PM Referred By: Confirmed By:CONOR COLON MD
[2019-04-08] MEDS: THIAMINE HCL 100 MG TABLET (FP) PO SCH (21:43)
[2019-04-08] MEDS: NORTRIPTYLINE HCL 25 MG CAPSULE PO SCH (21:44)
[2019-04-08] MEDS: MELATONIN 5 MG TABLETS PO PRN (21:45)
[2019-04-09] MEDS: PRENATAL VITAMINS W/ FOLIC ACID TABLET (FP) PO SCH (10:22)
[2019-04-09] MEDS: TOPIRAMATE 25 MG TABLET (FP) PO SCH ×2 (10:22→21:24)
[2019-04-09] MEDS: ESCITALOPRAM OXALATE 10 MG TABLET (FP) PO SCH (10:22)
[2019-04-09] MEDS: FAMOTIDINE 20 MG TABLET PO SCH ×2 (10:23→21:25)
[2019-04-09] MEDS: THIAMINE HCL 100 MG TABLET (FP) PO SCH (21:24)
[2019-04-09] MEDS: NORTRIPTYLINE HCL 25 MG CAPSULE PO SCH (21:24)
[2019-04-10] MEDS: ONDANSETRON *ODT* 4 MG TABLET SL PRN (07:24)
[2019-04-10] MEDS: TOPIRAMATE 25 MG TABLET (FP) PO SCH ×2 (10:16→21:29)
[2019-04-10] MEDS: ESCITALOPRAM OXALATE 10 MG TABLET (FP) PO SCH (10:16)
[2019-04-10] MEDS: NICOTINE 21 MG/24 HOURS TOPICAL PATCH TD SCH (10:17)
[2019-04-10] MEDS: PRENATAL VITAMINS W/ FOLIC ACID TABLET (FP) PO SCH (10:18)
[2019-04-10] MEDS: FAMOTIDINE 20 MG TABLET PO SCH ×2 (10:18→21:28)
[2019-04-10] MEDS: NORTRIPTYLINE HCL 25 MG CAPSULE PO SCH (21:28)
[2019-04-10] MEDS: THIAMINE HCL 100 MG TABLET (FP) PO SCH (21:29)
[2019-04-10] MEDS: MELATONIN 5 MG TABLETS PO PRN (21:29)
[2019-04-11] MEDS: TOPIRAMATE 25 MG TABLET (FP) PO SCH ×2 (09:33→21:32)
[2019-04-11] MEDS: FAMOTIDINE 20 MG TABLET PO SCH ×2 (09:33→21:32)
[2019-04-11] MEDS: NICOTINE 21 MG/24 HOURS TOPICAL PATCH TD SCH (09:34)
[2019-04-11] MEDS: ESCITALOPRAM OXALATE 10 MG TABLET (FP) PO SCH (09:34)
[2019-04-11] MEDS: PRENATAL VITAMINS W/ FOLIC ACID TABLET (FP) PO SCH (09:35)
[2019-04-11] MEDS: ONDANSETRON *ODT* 4 MG TABLET SL PRN (12:15)
[2019-04-11] MEDS: THIAMINE HCL 100 MG TABLET (FP) PO SCH (21:32)
[2019-04-11] MEDS: NORTRIPTYLINE HCL 25 MG CAPSULE PO SCH (21:32)
[2019-04-11] MEDS: MELATONIN 5 MG TABLETS PO PRN (21:32)
[2019-04-12] MEDS: NICOTINE 21 MG/24 HOURS TOPICAL PATCH TD SCH (10:51)
[2019-04-12] MEDS: TOPIRAMATE 25 MG TABLET (FP) PO SCH ×2 (10:51→21:20)
[2019-04-12] MEDS: ESCITALOPRAM OXALATE 10 MG TABLET (FP) PO SCH (10:51)
[2019-04-12] MEDS: PRENATAL VITAMINS W/ FOLIC ACID TABLET (FP) PO SCH (10:51)
[2019-04-12] MEDS: FAMOTIDINE 20 MG TABLET PO SCH ×2 (10:51→21:20)
[2019-04-12] MEDS: THIAMINE HCL 100 MG TABLET (FP) PO SCH (21:20)
[2019-04-12] MEDS: NORTRIPTYLINE HCL 25 MG CAPSULE PO SCH (21:20)
[2019-04-12] MEDS: MELATONIN 5 MG TABLETS PO PRN (21:20)
[2019-04-13] MEDS: IBUPROFEN 400 MG TABLET (FP) PO PRN ×4 (01:06→22:29)
[2019-04-13] MEDS: ACETAMINOPHEN 325 MG TABLET (FP) PO PRN (10:40)
[2019-04-13] MEDS: FAMOTIDINE 20 MG TABLET PO SCH ×2 (10:41→21:30)
[2019-04-13] MEDS: NICOTINE 21 MG/24 HOURS TOPICAL PATCH TD SCH (10:41)
[2019-04-13] MEDS: PRENATAL VITAMINS W/ FOLIC ACID TABLET (FP) PO SCH (10:41)
[2019-04-13] MEDS: TOPIRAMATE 25 MG TABLET (FP) PO SCH ×2 (10:41→21:29)
[2019-04-13] MEDS: ESCITALOPRAM OXALATE 10 MG TABLET (FP) PO SCH (10:41)
--- NOTE | 2019-04-13 12:24 | PN ---
S Progress Note (SOAP) Subjective: pt c/o excruciating tooth pain to right lower molar. reports poor dental health and has not taken care of his teeth due to busy with using substances. Pt requests for relief starting motrin and tylenol not effective. pt is post detox since 04/07/[address] [place] [address]. Objective: 04/13/19 12:22 Vital Signs - 24 hr 04/13/19 07:54 Temperature 97.7 F Pulse Rate 99 H Respiratory 18 Rate Blood Pressure 136/77 Oral exam:Painful to mouth opening. Right lower molar tooth decay with slight gum redness/swelling. Assessment: 04/13/19 12:23 Poor dental hygiene tooth decay/gingivitis Plan: Amoxicillin 500 mg po bid x 7 days Lidocaine viscous to swish and spit as directed motrin prn for pain Re-evaluate pts symptoms. D/w pt to follow up with dental appointment after rehab
[2019-04-13] MEDS: LIDOCAINE VISCOUS 2% ORAL/TOP 20 ML UNIT-DOSE CUP MM PRN ×2 (13:20→21:31)
[2019-04-13] MEDS ORDERED: AMOXICILLIN 500 MG CAPSULE (FP) PO ONE (13:30)
[2019-04-13] MEDS: AMOXICILLIN 500 MG CAPSULE (FP) PO SCH (21:29)
[2019-04-13] MEDS: NORTRIPTYLINE HCL 25 MG CAPSULE PO SCH (21:30)
[2019-04-13] MEDS: MELATONIN 5 MG TABLETS PO PRN (21:31)
[2019-04-13] MEDS: THIAMINE HCL 100 MG TABLET (FP) PO SCH (21:31)
[2019-04-14] MEDS: TOPIRAMATE 25 MG TABLET (FP) PO SCH ×2 (10:27→21:32)
[2019-04-14] MEDS: NICOTINE 14 MG/24 HOURS TOPICAL PATCH TD SCH (10:27)
[2019-04-14] MEDS: FAMOTIDINE 20 MG TABLET PO SCH ×2 (10:27→21:32)
[2019-04-14] MEDS: AMOXICILLIN 500 MG CAPSULE (FP) PO SCH ×2 (10:27→21:32)
[2019-04-14] MEDS: ESCITALOPRAM OXALATE 10 MG TABLET (FP) PO SCH (10:27)
[2019-04-14] MEDS: PRENATAL VITAMINS W/ FOLIC ACID TABLET (FP) PO SCH (10:27)
[2019-04-14] MEDS: IBUPROFEN 400 MG TABLET (FP) PO PRN ×2 (10:29→16:46)
[2019-04-14] MEDS: NORTRIPTYLINE HCL 25 MG CAPSULE PO SCH (21:32)
[2019-04-14] MEDS: THIAMINE HCL 100 MG TABLET (FP) PO SCH (21:32)
[2019-04-14] MEDS: MELATONIN 5 MG TABLETS PO PRN (21:34)
[2019-04-15] MEDS: IBUPROFEN 400 MG TABLET (FP) PO PRN ×2 (07:44→17:15)
[2019-04-15] MEDS: PRENATAL VITAMINS W/ FOLIC ACID TABLET (FP) PO SCH (10:27)
[2019-04-15] MEDS: ESCITALOPRAM OXALATE 10 MG TABLET (FP) PO SCH (10:27)
[2019-04-15] MEDS: AMOXICILLIN 500 MG CAPSULE (FP) PO SCH ×2 (10:27→21:36)
[2019-04-15] MEDS: TOPIRAMATE 25 MG TABLET (FP) PO SCH ×2 (10:27→21:36)
[2019-04-15] MEDS: FAMOTIDINE 20 MG TABLET PO SCH ×2 (10:27→21:36)
[2019-04-15] MEDS: NICOTINE 14 MG/24 HOURS TOPICAL PATCH TD SCH (10:28)
[2019-04-15] MEDS ORDERED: hydrOXYzine PAMOATE 25 MG CAPSULE (FP) PO PRN (11:47)
--- NOTE | 2019-04-15 11:58 | PN ---
[facility] Progress Note Note: Patient requesting an order for Trazadone which he said is prescribed to him. This is confirmed by [phone] [facility] at [address] [place] [address]. As per Pharmacist, patient has that medication waiting for him to be picked up
[2019-04-15] MEDS: hydrOXYzine PAMOATE 25 MG CAPSULE (FP) PO PRN (17:15)
[2019-04-15] MEDS: NORTRIPTYLINE HCL 25 MG CAPSULE PO SCH (21:36)
[2019-04-15] MEDS: traZODone HCL 100 MG TABLET (FP) PO SCH (21:36)
[2019-04-15] MEDS: THIAMINE HCL 100 MG TABLET (FP) PO SCH (21:36)
[2019-04-15] MEDS: MELATONIN 5 MG TABLETS PO PRN (21:37)
[2019-04-16] MEDS: IBUPROFEN 400 MG TABLET (FP) PO PRN ×2 (06:37→21:42)
[2019-04-16] MEDS: hydrOXYzine PAMOATE 25 MG CAPSULE (FP) PO PRN ×3 (06:37→21:41)
[2019-04-16] MEDS: TOPIRAMATE 25 MG TABLET (FP) PO SCH ×2 (10:47→21:40)
[2019-04-16] MEDS: AMOXICILLIN 500 MG CAPSULE (FP) PO SCH ×2 (10:47→21:40)
[2019-04-16] MEDS: FAMOTIDINE 20 MG TABLET PO SCH ×2 (10:47→21:40)
[2019-04-16] MEDS: ESCITALOPRAM OXALATE 10 MG TABLET (FP) PO SCH (10:47)
[2019-04-16] MEDS: PRENATAL VITAMINS W/ FOLIC ACID TABLET (FP) PO SCH (10:47)
[2019-04-16] MEDS: ACETAMINOPHEN 325 MG TABLET (FP) PO PRN (10:48)
[2019-04-16] MEDS: NICOTINE 14 MG/24 HOURS TOPICAL PATCH TD SCH (11:00)
[2019-04-16] MEDS: NORTRIPTYLINE HCL 25 MG CAPSULE PO SCH (21:40)
[2019-04-16] MEDS: MELATONIN 5 MG TABLETS PO PRN (21:40)
[2019-04-16] MEDS: traZODone HCL 100 MG TABLET (FP) PO SCH (21:40)
[2019-04-16] MEDS: THIAMINE HCL 100 MG TABLET (FP) PO SCH (21:41)
[2019-04-17] MEDS: IBUPROFEN 400 MG TABLET (FP) PO PRN ×2 (06:55→22:00)
[2019-04-17] MEDS: hydrOXYzine PAMOATE 25 MG CAPSULE (FP) PO PRN ×4 (06:55→22:00)
[2019-04-17] MEDS: NICOTINE 14 MG/24 HOURS TOPICAL PATCH TD SCH (10:10)
[2019-04-17] MEDS: TOPIRAMATE 25 MG TABLET (FP) PO SCH ×2 (10:12→22:58)
[2019-04-17] MEDS: ESCITALOPRAM OXALATE 10 MG TABLET (FP) PO SCH (10:13)
[2019-04-17] MEDS: AMOXICILLIN 500 MG CAPSULE (FP) PO SCH ×2 (10:13→22:00)
[2019-04-17] MEDS: FAMOTIDINE 20 MG TABLET PO SCH ×2 (10:13→22:00)
[2019-04-17] MEDS: PRENATAL VITAMINS W/ FOLIC ACID TABLET (FP) PO SCH (10:14)
[2019-04-17] MEDS: traZODone HCL 100 MG TABLET (FP) PO SCH (22:00)
[2019-04-17] MEDS: THIAMINE HCL 100 MG TABLET (FP) PO SCH (22:00)
[2019-04-17] MEDS: NORTRIPTYLINE HCL 25 MG CAPSULE PO SCH (22:58)
[2019-04-18] MEDS: FAMOTIDINE 20 MG TABLET PO SCH ×2 (10:31→21:31)
[2019-04-18] MEDS: AMOXICILLIN 500 MG CAPSULE (FP) PO SCH ×2 (10:31→21:31)
[2019-04-18] MEDS: PRENATAL VITAMINS W/ FOLIC ACID TABLET (FP) PO SCH (10:31)
[2019-04-18] MEDS: ESCITALOPRAM OXALATE 10 MG TABLET (FP) PO SCH (10:31)
[2019-04-18] MEDS: TOPIRAMATE 25 MG TABLET (FP) PO SCH ×2 (10:32→21:31)
[2019-04-18] MEDS: NICOTINE 14 MG/24 HOURS TOPICAL PATCH TD SCH (10:32)
[2019-04-18] MEDS: IBUPROFEN 400 MG TABLET (FP) PO PRN ×2 (10:33→16:54)
[2019-04-18] MEDS: hydrOXYzine PAMOATE 25 MG CAPSULE (FP) PO PRN ×3 (12:18→21:32)
[2019-04-18] MEDS ORDERED: PT OWN MED DRAWER 7, Y5N ONE (20:35)
[2019-04-18] MEDS: THIAMINE HCL 100 MG TABLET (FP) PO SCH (21:31)
[2019-04-18] MEDS: traZODone HCL 100 MG TABLET (FP) PO SCH (21:31)
[2019-04-18] MEDS: NORTRIPTYLINE HCL 25 MG CAPSULE PO SCH (21:31)
[2019-04-19] MEDS: IBUPROFEN 400 MG TABLET (FP) PO PRN ×3 (06:21→21:16)
[2019-04-19] MEDS: hydrOXYzine PAMOATE 25 MG CAPSULE (FP) PO PRN ×3 (06:21→21:15)
[2019-04-19] MEDS: FAMOTIDINE 20 MG TABLET PO SCH ×2 (10:20→21:13)
[2019-04-19] MEDS: ESCITALOPRAM OXALATE 10 MG TABLET (FP) PO SCH (10:20)
[2019-04-19] MEDS: NICOTINE POLACRILEX 2 MG GUM BUC PRN ×2 (10:20→13:03)
[2019-04-19] MEDS: NICOTINE 14 MG/24 HOURS TOPICAL PATCH TD SCH (10:20)
[2019-04-19] MEDS: PRENATAL VITAMINS W/ FOLIC ACID TABLET (FP) PO SCH (10:21)
[2019-04-19] MEDS: AMOXICILLIN 500 MG CAPSULE (FP) PO SCH ×2 (10:21→21:13)
[2019-04-19] MEDS: TOPIRAMATE 25 MG TABLET (FP) PO SCH ×2 (13:02→21:15)
[2019-04-19] MEDS ORDERED: PT OWN MED DRAWER 7, Y5N ONE (19:34)
[2019-04-19] MEDS: traZODone HCL 100 MG TABLET (FP) PO SCH (21:13)
[2019-04-19] MEDS: THIAMINE HCL 100 MG TABLET (FP) PO SCH (21:13)
[2019-04-19] MEDS: MELATONIN 5 MG TABLETS PO PRN (21:13)
[2019-04-19] MEDS: NORTRIPTYLINE HCL 25 MG CAPSULE PO SCH (21:14)
[2019-04-20] MEDS: IBUPROFEN 400 MG TABLET (FP) PO PRN ×3 (05:56→21:38)
[2019-04-20] MEDS: hydrOXYzine PAMOATE 25 MG CAPSULE (FP) PO PRN ×4 (05:56→21:38)
[2019-04-20] MEDS: TOPIRAMATE 25 MG TABLET (FP) PO SCH ×2 (10:05→21:37)
[2019-04-20] MEDS: AMOXICILLIN 500 MG CAPSULE (FP) PO SCH (10:05)
[2019-04-20] MEDS: PRENATAL VITAMINS W/ FOLIC ACID TABLET (FP) PO SCH (10:05)
[2019-04-20] MEDS: ESCITALOPRAM OXALATE 10 MG TABLET (FP) PO SCH (10:05)
[2019-04-20] MEDS: FAMOTIDINE 20 MG TABLET PO SCH ×2 (10:05→21:37)
[2019-04-20] MEDS: NICOTINE 14 MG/24 HOURS TOPICAL PATCH TD SCH (10:05)
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
--- NOTE | 2019-04-20 14:53 | PN ---
[facility] Progress Note Note: Patient is scheduled for discharge tomorrow. Scripts for 30 days supply of medications(Trazadone 100 mg/hs, Lexapro 10 mg/day) will be electronically transmitted to [facility] at [address] [place] [address]
[2019-04-20] MEDS: THIAMINE HCL 100 MG TABLET (FP) PO SCH (21:36)
[2019-04-20] MEDS: NORTRIPTYLINE HCL 25 MG CAPSULE PO SCH (21:36)
[2019-04-20] MEDS: MELATONIN 5 MG TABLETS PO PRN (21:36)
[2019-04-20] MEDS: traZODone HCL 100 MG TABLET (FP) PO SCH (21:37)
[2019-04-21] MEDS: hydrOXYzine PAMOATE 25 MG CAPSULE (FP) PO PRN ×2 (04:41→10:17)
[2019-04-21] MEDS: IBUPROFEN 400 MG TABLET (FP) PO PRN ×2 (04:42→11:00)
[2019-04-21 07:07] VITALS: BP 110/83; PULSE 107; TEMP 98
--- NOTE | 2019-04-21 08:27 | PN ---
S Progress Note Note: Pt is discharging today as scheduled. Met with pt this morning and ready to follow up with next level of care. Pt reports his mother has made a dental appointment for next week and will follow up after discharge. Alert o x 3,NAD. Oob ambulating with steady gait. Vital Signs - 24 hr 04/21/19 04/21/19 03:30 07:06 Temperature 98 F Pulse Rate 107 H Respiratory 18 18 Rate Blood Pressure 110/83 A/P Discharge today D/w pt and reminded to Follow up with all treatment recommendations.
--- NOTE | 2019-04-21 08:44 | DS ---
[facility] Rehab Discharge Summary - [facility] Rehab Discharge Summary Admission Date: 04/07/19 Discharge Date: 04/21/19 - History Present History: Alcohol dependence, Cannabis dependence Pertinent Past History: patient with hx of ETOH dependence. REceived care at the [facility]. Is aware of his mental health issues and is adherent to those medications. Plans to return to [facility]. - Discharge Physical Exam Vital Signs: Vital Signs Temperature 98 F 04/21/19 07:06 Pulse Rate 107 H 04/21/19 07:06 Respiratory Rate 18 04/21/19 07:06 Blood Pressure 110/83 04/21/19 07:06 O2 Sat by Pulse Oximetry (%) Pertinent Admission Physical Exam Findings: - Physical General Appearance: No Apparent Distress, HEENTM: Normocephalic, Respiratory: Lungs Clear, Neck: Supple, Trachea in good position Cardiology: S1, S2, Abdominal: +Bowel Sounds, Non Tender, Flat, Soft Musculoskeletal: full range of Motion, Gait Steady, Neurological:piper helper II-XII NML intact, - Treatment Discharge Condition: Outpatient referral accepted (medically stable for discharge. Pt accepted referral to [facility]) Hospital Course: Patient attended groups, had 1;1 with counselor. Was adherent to his treatment plan and medication regimen; had no significant medical problems during his stay in rehab. - Medication Discharge Medications: Ambulatory Orders Albuterol Sulfate [Albuterol Sulfate Hfa] 2 inhaler PO Q4HWA 04/03/19 Escitalopram Oxalate [Lexapro -] 10 mg PO DAILY 04/03/19 Nortriptyline HCl [Pamelor -] 50 mg PO HS 04/03/19 Topiramate [Topamax] 50 mg PO BID 04/03/19 traZODone HCL [Trazodone HCl] 50 mg PO HS 04/03/19 Escitalopram Oxalate [Lexapro -] 10 mg PO DAILY #30 tablet 04/20/19 traZODone HCL [Desyrel -] 100 mg PO HS #30 tablet 04/20/19 - Medication-Assisted Treatment (MAT) Medication-Assisted Treatment (MAT): No - Discharge Instructions Diet, activity, other medical instructions: Diet: as tolerated Activity: as tolerated Other medical instructions: Please follow up with aftercare referral - Diagnosis (1) Alcohol use disorder Current Visit: Yes Status: Chronic (2) Cannabis dependence Current Visit: Yes Status: Chronic - Follow-up Referral Minutes to complete discharge: 20 - AMA Did Patient Leave Against Medical Advice: No
[2019-04-21] MEDS: TOPIRAMATE 25 MG TABLET (FP) PO SCH (10:15)
[2019-04-21] MEDS: NICOTINE 14 MG/24 HOURS TOPICAL PATCH TD SCH (10:15)
[2019-04-21] MEDS: FAMOTIDINE 20 MG TABLET PO SCH (10:15)
[2019-04-21] MEDS: ESCITALOPRAM OXALATE 10 MG TABLET (FP) PO SCH (10:15)
[2019-04-21] MEDS: PRENATAL VITAMINS W/ FOLIC ACID TABLET (FP) PO SCH (10:16)
== END 2019-04-21 11:28 | disposition home or self-care (01) | DRG 772 ==
LOC: YASAS 13:50 → Y5N 13:52 → Y3W 04-17 19:48
PROVIDERS: ADMIT Neuromusculoskeletal Medicine & OMM; ATTEND Neuromusculoskeletal Medicine & OMM
PROC: HZ42ZZZ Group Counseling for Substance Abuse Treatment, Cognitive-Behavioral (ICD-10-PCS; principal; 2019-04-07)
DX: F10.20 Alcohol dependence, uncomplicated (principal); F12.20 Cannabis dependence, uncomplicated; F17.210 Nicotine dependence, cigarettes, uncomplicated; F19.24 Other psychoactive substance dependence with psychoactive substance-induced mood disorder; J45.909 Unspecified asthma, uncomplicated; K02.9 Dental caries, unspecified; K05.10 Chronic gingivitis, plaque induced
CPT/HCPCS: 93005; 93010; Q0162